=== PATIENT | female | born 1985 | race Caucasian/White ===

== ENCOUNTER 2019-04-16 14:51 | Emergency (ER) | payer OTHER ==
[~2019-04-16] VITALS: Ht 165.1 cm; Wt 106.7 kg
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
[2019-04-16 15:10] VITALS: BP 167/91
[2019-04-16] MEDS ORDERED: DEXAMETHASONE 4 MG/ML, 5ML ONE (15:12)
[2019-04-16] MEDS ORDERED: DEXAMETHASONE 4 MG/ML, 1ML IM ONE (15:30)
[2019-04-16] MEDS ORDERED: CEFTRIAXONE 1,000 MG ONE (15:40)
[2019-04-16] MEDS ORDERED: CEFTRIAXONE 1,000 MG IM ONE (16:00)
== END 2019-04-16 15:57 | disposition home or self-care (01) ==
LOC: ED 15:38
DX: J02.0 Streptococcal pharyngitis (principal)
CPT/HCPCS: 87880; 93005; 96372; 99284; J0696; J1100

== ENCOUNTER 2020-01-22 14:40 | Emergency (ER) | payer SELFPAY ==
[~2020-01-22] VITALS: Ht 165.1 cm; Wt 92.6 kg
[2020-01-22] MEDS ORDERED: PHENAZOPYRIDINE 200 MG TABLET PO ONE (15:00)
[2020-01-22 15:14] LABS: BASOPHILS # (AUTO) 0.02 x10^3/uL (0-0.1); BASOPHILS % (AUTO) 0 % (0-1); EOSINOPHILS # (AUTO) 0.04 x10^3/uL (0-0.4); EOSINOPHILS % (AUTO) 0 % (1-7); LYMPHOCYTES # (AUTO) 0.86 x10^3/uL (1-3.4); LYMPHOCYTES % (AUTO) 9 % (22-44); MD NO; MEAN CORPUSCULAR HEMOGLOBIN 25.1 pg (27.0-34.8); MEAN CORPUSCULAR HGB CONC 31.7 g/dL (32.4-35.8); MEAN CORPUSCULAR VOLUME 79.3 fL (80-100); MEAN PLATELET VOLUME 5.9 fL (7.4-10.4); MONOCYTES # (AUTO) 0.82 x10^3/uL (0.2-0.8); MONOCYTES % (AUTO) 9 % (2-9); NEUTROPHILS # (AUTO) 7.71 x10^3/uL (1.8-6.8); NEUTROPHILS % (AUTO) 82 % (42-75); PLATELET COUNT 310 x10^3/uL (130-400); RED CELL DISTRIBUTION WIDTH 15.6 % (9.6-15.2)
[2020-01-22 15:26] LABS: ALANINE AMINOTRANSFERASE 27 U/L (12-78); ALBUMIN 2.4 g/dL (3.4-5.0); ANION GAP 7 mmol/L (5-15); CALCIUM 8.4 mg/dL (8.5-10.1); CHLORIDE 105 mmol/L (98-107); CREATININE 0.86 mg/dL (0.55-1.02)
[2020-01-22 15:31] LABS: ALKALINE PHOSPHATASE 88 U/L (45-117); BILIRUBIN,TOTAL 0.3 mg/dL (0.2-1.0); TOTAL PROTEIN 7.6 g/dL (6.4-8.2)
--- NOTE | 2020-01-22 15:49 | NUR ---
PT TO ROOM VIA WHEELCHAIR AT THIS TIME.
[2020-01-22] MEDS ORDERED: SODIUM CHLORIDE FLUSH 10ML SYR IVF ONE (16:00)
[2020-01-22] MEDS ORDERED: SODIUM CHLORIDE 0.9% 1,000ML IVBOLUS ONE (16:00)
[2020-01-22] MEDS ORDERED: ONDANSETRON 2MG/ML, 2ML IVPush ONE (16:00)
--- NOTE | 2020-01-22 16:11 | NUR ---
PT IN GOWN, ATTACHED TO MONITORS. U/A COLLECTED AND SENT. IV STARTED, LABS DRAWN AND SENT. PT DENIES ANY NEEDS. CALL LIGHT IN REACH.
[2020-01-22] MEDS ORDERED: ONDANSETRON 2MG/ML, 2ML ONE (16:19)
[2020-01-22] MEDS ORDERED: MORPHINE SULFATE 4 MG/ML, 1ML ONE ×3 (16:19→19:37)
[2020-01-22] MEDS: MORPHINE SULFATE 4 MG/ML, 1ML IVPush PRN ×2 (16:22→16:56)
[2020-01-22 16:32] LABS: MICROSCOPIC INDICATED
[2020-01-22] MEDS ORDERED: CEFTRIAXONE PMX 1GM/50ML 50 ML ONE (16:49)
[2020-01-22] MEDS ORDERED: CEFTRIAXONE PMX 1GM/50ML 50 ML IV ONE (17:00)
[2020-01-22 17:13] VITALS: BP 152/86
[2020-01-22] MEDS ORDERED: KETOROLAC 30 MG/1 ML ONE (17:22)
[2020-01-22] MEDS ORDERED: KETOROLAC 30 MG/1 ML IVPush ONE (17:30)
--- NOTE | 2020-01-22 18:46 | NUR ---
PT TO IMAGING AT THIS TIME.
[2020-01-22] MEDS ORDERED: MORPHINE SULFATE 4 MG/ML, 1ML IVPush ONE (20:00)
== END 2020-01-22 19:45 | disposition home or self-care (01) ==
LOC: ED 16:43
DX: N10 Acute pyelonephritis (principal); M54.5 Low back pain; R30.0 Dysuria; R10.11 Right upper quadrant pain; Z90.89 Acquired absence of other organs
CPT/HCPCS: 36415; 74176; 76700; 80053; 81001; 83690; 84703; 85025; 87077; 87086; 87186; 96361; 96365; 96375; 96376; 99285; J0696; J1885; J2270; J2405; J7030